=== PATIENT | male | born 1965 | race African-American/Black ===

== ENCOUNTER 2018-11-28 10:52 | Emergency (ER) | payer BC, OTHER ==
[2018-11-28 11:25] VITALS: TEMP 98.3
[2018-11-28] MEDS ORDERED: IPRATROPIUM-ALBUTEROL 3 ML NEB INHALATION STA (12:25)
[2018-11-28] MEDS ORDERED: SODIUM CHLORIDE 0.9% 500 ML 500 ML IV STA (12:25)
[2018-11-28] MEDS ORDERED: methylPREDNISolone SOD SUCCI 125 MG/2 ML VIAL IV STA (12:25)
[2018-11-28] MEDS ORDERED: hydrALAZINE HCL 20 MG/ML 1 ML VIAL IVP STA (12:26)
--- NOTE | 2018-11-28 13:16 | XR ---
EXAMINATION TYPE: XR chest 2V DATE OF EXAM: 11/28/2018 COMPARISON: NONE HISTORY: Shortness of breath TECHNIQUE: Frontal and lateral views of the chest are obtained. FINDINGS: Scattered senescent parenchymal changes noted. Hyperinflation compatible with COPD. No evidence for infiltrate. No evidence for atelectasis. Heart size is stable. Mediastinal structures are stable and grossly unremarkable. No evidence for hilar prominence. Degenerative changes dorsal spine. IMPRESSION: 1. No evidence for acute pulmonary disease.
[2018-11-28 13:20] LABS: Basophils # (A) 0.1 k/uL (0-0.2); Basophils % (A) 1 %; Eosinophils # (A) 0.2 k/uL (0-0.7); Eosinophils % (A) 2 %; HCT 44.4 % (39.0-53.0); HGB 14.1 gm/dL (13.0-17.5); Lymphocytes # (A) 3.2 k/uL (1.0-4.8); Lymphocytes % (A) 35 %; MCH 28.2 pg (25.0-35.0); MCHC 31.6 g/dL (31.0-37.0); MCV 89.3 fL (80.0-100.0); Mean Platelet Volume 9.7; Monocytes # (A) 0.4 k/uL (0-1.0); Monocytes % (A) 4 %; Neutrophils % (A) 54 %; Platelet Count 136 k/uL (150-450); RBC 4.97 m/uL (4.30-5.90); RDW 13.8 % (11.5-15.5); WBC 9.2 k/uL (3.8-10.6)
--- NOTE | 2018-11-28 13:31 | ED ---
URI HPI - General Chief Complaint: Upper Respiratory Infection Stated Complaint: cough, SOB Time Seen by Provider: 11/28/18 12:05 Source: patient, RN notes reviewed, old records reviewed Mode of arrival: ambulatory Limitations: no limitations - History of Present Illness Initial Comments: This Patient is a 53-year-old male presents emergency department today for evaluation and treatment cough for the past 2 days. Patient ports physical states she is wheezing. He denies any fever. He reports he's had a pretty productive cough. He denies any associated chest pain at this time. - Related Data Home Medications Medication Instructions Recorded Confirmed Ibuprofen [Motrin] 800 mg PO TID PRN 11/28/18 11/28/18 guaiFENesin SYRUP 100MG/5ML 200 mg PO Q6H PRN 11/28/18 11/28/18 [Robitussin] Previous Rx's Medication Instructions Recorded Albuterol Inhaler [Ventolin Hfa 1 - 2 puff INHALATION RT-Q6H PRN 11/28/18 Inhaler] #1 inhaler Azithromycin 250 mg PO DAILY #6 tablet 11/28/18 amLODIPine [Norvasc] 5 mg PO DAILY #7 tab 11/28/18 predniSONE 50 mg PO DAILY #5 tablet 11/28/18 Allergies Allergy/AdvReac Type Severity Reaction Status Date / Time No Known Allergies Allergy Verified 11/28/18 12:31 Review of Systems ROS Statement: Those systems with pertinent positive or pertinent negative responses have been documented in the HPI. ROS Other: All systems not noted in ROS Statement are negative. Past Medical History Past Medical History: No Reported History History of Any Multi-Drug Resistant Organisms: None Reported Past Surgical History: No Surgical Hx Reported Past Psychological History: No Psychological Hx Reported Smoking Status: Current every day smoker Past Alcohol Use History: None Reported Past Drug Use History: None Reported General Exam - General Exam Comments Initial Comments: 53-year-old male. No distress. Limitations: no limitations General appearance: alert, in no apparent distress Head exam: Present: atraumatic, normocephalic, normal inspection Eye exam: Present: normal appearance, PERRL, EOMI. Absent: scleral icterus, conjunctival injection, periorbital swelling ENT exam: Present: normal exam, mucous membranes moist Neck exam: Present: normal inspection. Absent: tenderness, meningismus, lymphadenopathy Respiratory exam: Present: wheezes. Absent: normal lung sounds bilaterally, respiratory distress, rales, rhonchi, stridor Cardiovascular Exam: Present: regular rate, normal rhythm, normal heart sounds. Absent: systolic murmur, diastolic murmur, rubs, gallop, clicks GI/Abdominal exam: Present: soft, normal bowel sounds. Absent: distended, tenderness, guarding, rebound, rigid Extremities exam: Present: normal inspection, full ROM, normal capillary refill. Absent: tenderness, pedal edema, joint swelling, calf tenderness Back exam: Present: normal inspection Neurological exam: Present: alert, oriented X3, CN II-XII intact Psychiatric exam: Present: normal affect, normal mood Skin exam: Present: warm, dry, intact, normal color. Absent: rash Course Vital Signs 11/28/18 11/28/18 11/28/18 11:22 12:34 12:40 Temperature 98.3 F Pulse Rate 82 112 H 120 H Respiratory 18 Rate Blood Pressure 172/130 O2 Sat by Pulse 99 Oximetry 11/28/18 14:30 Temperature Pulse Rate 72 Respiratory 16 Rate Blood Pressure 161/110 O2 Sat by Pulse 98 Oximetry Medical Decision Making - Medical Decision Making 53-year-old male presents emergency department today for evaluation with chief complaint of cough congestion and wheezing. He did have significant wheezing and rebound and reevaluation. Is given 2 breathing treatments. After this he has significant improvement of his lung sounds. I discussed the Patient in the put on steroids. Chest x-rays reviewed negative for any acute distress. Blood work was otherwise unremarkable. He also is quite hypertensive on arrival was given a dose of antihypertensive. Patient ports he does not have a primary care doctor. Discussed the importance of him his blood pressure checked and having labs checked as well. Discusses glucose was mildly elevated to be did eat before coming here. I discussed that we'll discharge the Patient with a course of steroids as well as antibiotics for acute bronchitis. Patient is agreeable to treatment plan will comply. Return parameters were discussed. - Lab Data Result diagrams: 11/28/18 12:50 11/28/18 12:50 Lab Results 11/28/18 11/28/18 Range/Units 12:50 12:50 WBC 9.2 (3.8-10.6) k/uL RBC 4.97 (4.30-5.90) m/uL Hgb 14.1 (13.0-17.5) gm/dL Hct 44.4 (39.0-53.0) % MCV 89.3 (80.0-100.0) fL MCH 28.2 (25.0-35.0) pg MCHC 31.6 (31.0-37.0) g/dL RDW 13.8 (11.5-15.5) % Plt Count 136 L (150-450) k/uL Neutrophils % 54 % Lymphocytes % 35 % Monocytes % 4 % Eosinophils % 2 % Basophils % 1 % Neutrophils # 5.0 (1.3-7.7) k/uL Lymphocytes # 3.2 (1.0-4.8) k/uL Monocytes # 0.4 (0-1.0) k/uL Eosinophils # 0.2 (0-0.7) k/uL Basophils # 0.1 (0-0.2) k/uL Sodium 139 (137-145) mmol/L Potassium 3.6 (3.5-5.1) mmol/L Chloride 105 (98-107) mmol/L Carbon Dioxide 23 (22-30) mmol/L Anion Gap 11 mmol/L BUN 15 (9-20) mg/dL Creatinine 1.06 (0.66-1.25) mg/dL Est GFR (CKD-EPI)AfAm >90 (>60 ml/min/1.73 sqM) Est GFR (CKD-EPI)NonAf 80 (>60 ml/min/1.73 sqM) Glucose 189 H (74-99) mg/dL Calcium 9.3 (8.4-10.2) mg/dL 11/28/18 14:05 EKG shows normal sinus rhythm with sinus arrhythmia otherwise normal EKG. - Radiology Data Radiology results: report reviewed Chest x-rays negative for acute disease. Disposition Clinical Impression: Bronchitis, Episode of hypertension Disposition: HOME SELF-CARE Condition: Good Instructions (If sedation given, give patient instructions): Upper Respiratory Infection (ED) Additional Instructions: Please use medication as discussed. Patient needs a follow-up with primary care doctor for concerns for early diabetes and elevated blood pressure. Please follow up with family doctor if symptoms have not improved over the next two days. Please return to the emergency room if your symptoms increase or worsen or for any other concerns. Prescriptions: Azithromycin 250 mg PO DAILY #6 tablet amLODIPine [Norvasc] 5 mg PO DAILY #7 tab predniSONE 50 mg PO DAILY #5 tablet Albuterol Inhaler [Ventolin Hfa Inhaler] 1 - 2 puff INHALATION RT-Q6H PRN #1 inhaler PRN Reason: Shortness Of Breath Is patient prescribed a controlled substance at d/c from ED?: No Referrals: None,Stated [Primary Care Provider] - 1-2 days Briseyda Bojorquez MD [STAFF PHYSICIAN] - 1-2 days Sita May MD [REFERRING] - 1-2 days Shabbir Hansen MD [STAFF PHYSICIAN] - 1-2 days Time of Disposition: 14:08
[2018-11-28 13:35] LABS: African American GFR (CKD) >90 (>60 ml/min/1.73 sqM); Anion Gap 11 mmol/L; Blood Urea Nitrogen 15 mg/dL (9-20); Calcium 9.3 mg/dL (8.4-10.2); Carbon Dioxide 23 mmol/L (22-30); Chloride 105 mmol/L (98-107); Glucose 189 mg/dL (74-99); Potassium 3.6 mmol/L (3.5-5.1); Sodium 139 mmol/L (137-145)
[2018-11-28 15:22] VITALS: BP 161/110; PULSE 72; RESP 16
== END 2018-11-28 15:13 | disposition home or self-care (01) ==
LOC: EC 10:52
DX: J20.9 Acute bronchitis, unspecified (principal); I10 Essential (primary) hypertension; R73.9 Hyperglycemia, unspecified; F17.200 Nicotine dependence, unspecified, uncomplicated
CPT/HCPCS: 36415; 94640; 93005; 80048; 85025; 71046; 99285; 96374; 96375; 96361; J0360; J2930

== ENCOUNTER 2022-06-15 15:02 | Emergency (ER) | payer OTHER ==
[2022-06-15 15:21] VITALS: TEMP 98.1
[2022-06-15 15:29] LABS: Glucose,Whole Blood 421 mg/dL (70-110)
[2022-06-15] MEDS ORDERED: SODIUM CHLORIDE 0.9% 2,000 ML IV ONE (15:41)
--- NOTE | 2022-06-15 15:50 | ED ---
General Adult HPI - General Chief complaint: Recheck/Abnormal Lab/Rx Stated complaint: high blood sugar Time Seen by Provider: 06/15/22 15:26 Source: patient Mode of arrival: ambulatory Limitations: no limitations - History of Present Illness Initial comments: This patient is a 56-year-old man with history of "borderline diabetes", who presents with complaint that over the past 2 weeks he has had generalized fatigue, polyuria, polydipsia. He states that over the past couple of days things have worsened he feels weak all of the time. He feels very dry. Blood sugar at home has been over 300. He therefore presents for evaluation here. The patient denies any focal symptoms of infection or pain. No fever or chills. No congestion, cough, dyspnea. No vomiting or diarrhea. No chest pain. Onset/Timin -: week(s) Severity scale (1-10): 0 Improves with: none Worsens with: none Associated Symptoms: weakness Treatments Prior to Arrival: none - Related Data Home Medications Medication Instructions Recorded Confirmed amLODIPine [Norvasc] 10 mg PO DIRECTED 06/15/22 06/15/22 Allergies Allergy/AdvReac Type Severity Reaction Status Date / Time No Known Allergies Allergy Verified 06/15/22 16:19 Review of Systems ROS Statement: Those systems with pertinent positive or pertinent negative responses have been documented in the HPI. ROS Other: All systems not noted in ROS Statement are negative. Constitutional: Denies: fever, chills Respiratory: Denies: cough, dyspnea Cardiovascular: Denies: chest pain, palpitations, edema Endocrine: Reports: fatigue, polydipsia, polyuria Gastrointestinal: Denies: abdominal pain, vomiting, diarrhea Genitourinary: Denies: dysuria, frequency, hematuria Skin: Denies: rash Neurological: Denies: headache, weakness Past Medical History Past Medical History: Diabetes Mellitus, Hypertension Additional Past Medical History / Comment(s): hypercholestremia History of Any Multi-Drug Resistant Organisms: None Reported Past Surgical History: No Surgical Hx Reported Past Psychological History: No Psychological Hx Reported Smoking Status: Current some day smoker Past Alcohol Use History: None Reported Past Drug Use History: None Reported General Exam Limitations: no limitations General appearance: alert, in no apparent distress Head exam: Present: atraumatic, normocephalic Eye exam: Present: normal appearance ENT exam: Present: mucous membranes dry Neck exam: Present: normal inspection Respiratory exam: Present: normal lung sounds bilaterally. Absent: respiratory distress, wheezes, rales, rhonchi, stridor Cardiovascular Exam: Present: regular rate, normal rhythm, normal heart sounds. Absent: systolic murmur, diastolic murmur, rubs, gallop GI/Abdominal exam: Present: soft. Absent: distended, tenderness, guarding, rebound, rigid, mass Extremities exam: Present: normal inspection, normal capillary refill. Absent: pedal edema, calf tenderness Back exam: Present: normal inspection. Absent: CVA tenderness (R), CVA tenderness (L) Neurological exam: Present: alert Skin exam: Present: warm, dry, intact, normal color. Absent: rash Course Vital Signs 06/15/22 06/15/22 06/15/22 15:17 18:00 19:12 Temperature 98.1 F Pulse Rate 86 82 62 Respiratory 20 16 16 Rate Blood Pressure 123/77 129/87 122/84 O2 Sat by Pulse 98 99 99 Oximetry Medical Decision Making - Medical Decision Making This patient is a 56-year-old man with history of diabetes who has recently been noncompliant with medication as she had run out. The patient is found to have hyperglycemia. Patient has insulin and fluids and is feeling better and would like to go home. He'll follow with his physician and recommended keeping a di jocelynn of everything that he eats or drink to discuss better diet control with his physician. Discussed appropriate return parameters and follow-up. The patient did have chest x-ray which does not show acute infiltrate, cardiomegaly or congestive heart failure. Was pt. sent in by a medical professional or institution (, PA, PRODUCTION SUPPORT ENGINEER, urgent care, hospital, or [facility]...) When possible be specific @ -[No] Did you speak to anyone other than the patient for history (EMS, parent, family, police, friend...)? What history was obtained from this source @ -[No] Did you review nursing and triage notes (agree or disagree)? Why? @ -[I reviewed and agree with nursing and triage notes] Were old charts reviewed (outside hosp., previous admission, EMS record, old EKG, old radiological studies, urgent care reports/EKG's, [facility] records)? Report findings @ -[No old charts were reviewed] Differential Diagnosis (chest pain, altered mental status, abdominal pain women, abdominal pain men, vaginal bleeding, weakness, fever, dyspnea, syncope, headache, dizziness, GI bleed, back pain, seizure, CVA, palpatations, mental health, musculoskeletal)? @ -[The differential diagnosis includes medical noncompliance, acute infection, acute [place], amongst other conditions EKG interpreted by me (3pts min.). @ -[As above] X-rays interpreted by me (1pt min.). @ -[As above CT interpreted by me (1pt min.). @ -[None done] U/S interpreted by me (1pt. min.). @ -[None done] What testing was considered but not performed or refused? (CT, X-rays, U/S, labs)? Why? @ -[None] What meds were considered but not given or refused? Why? @ -[None] Did you discuss the management of the patient with other professionals (professionals i.e. , PA, PRODUCTION SUPPORT ENGINEER, lab, RT, psych nurse, social work case manager, field technical specialist, teacher, airport operations officer, correctional case manager)? Give summary @ -[No] Was smoking cessation discussed for >3mins.? @ -[No] Was critical care preformed (if so, how long)? @ -[No] Were there social determinants of health that impacted care today? How? (Homelessness, low income, unemployed, alcoholism, drug addiction, transportation, low edu. Level, literacy, decrease access to med. care, fdc, rehab)? @ -[No] Was there de-escalation of care discussed even if they declined (Discuss DNR or withdrawal of care, Hospice)? DNR status @ -[No] What co-morbidities impacted this encounter? (DM, HTN, Smoking, COPD, CAD, Cancer, CVA, ARF, Chemo, Hep., AIDS, mental health diagnosis, sleep apnea, morbid obesity)? @ -[None] Was patient admitted / discharged? Hospital course, mention meds given and route, prescriptions, significant lab abnormalities, going to OR and other pertinent info. @ -[We discussed admission, but this point the patient would like to continue as outpatient with close follow-up Undiagnosed new problem with uncertain prognosis? @ -[No] Drug Therapy requiring intensive monitoring for toxicity (Heparin, Nitro, Insulin, Cardizem)? @ -[No] Were any procedures done? @ -[No] Diagnosis/symptom? @ -[Acute hyperglycemia Acute, or Chronic, or Acute on Chronic? @ -[default] Uncomplicated (without systemic symptoms) or Complicated (systemic symptoms)? @ -Uncomplicated Side effects of treatment? @ -[No] Exacerbation, Progression, or Severe Exacerbation? @ -[No] Poses a threat to life or bodily function? How? (Chest pain, [place], [place], pneumonia, PE, COPD, DKA, ARF, appy, cholecystitis, CVA, Diverticulitis, Homicidal, Suicidal, threat to staff... and all critical care pts) @ -[No] - Lab Data Result diagrams: 06/15/22 15:51 06/15/22 15:51 Lab Results 06/15/22 06/15/22 06/15/22 Range/Units 15:28 15:51 15:51 WBC 9.3 (3.8-10.6) k/uL RBC 4.48 (4.30-5.90) m/uL Hgb 13.5 (13.0-17.5) gm/dL Hct 38.4 L (39.0-53.0) % MCV 85.7 (80.0-100.0) fL MCH 30.2 (25.0-35.0) pg MCHC 35.2 (31.0-37.0) g/dL RDW 13.2 (11.5-15.5) % Plt Count 168 (150-450) k/uL MPV 12.8 Neutrophils % (Manual) 56 % Lymphocytes % (Manual) 35 % Monocytes % (Manual) 7 % Eosinophils % (Manual) 2 % Neutrophils # (Manual) 5.21 (1.3-7.7) k/uL Lymphocytes # (Manual) 3.26 (1.0-4.8) k/uL Monocytes # (Manual) 0.65 (0-1.0) k/uL Eosinophils # (Manual) 0.19 (0-0.7) k/uL Nucleated RBCs 0 (0-0) /100 WBC Manual Slide Review Performed Large Platelets Present Sodium 131 L (137-145) mmol/L Potassium 4.6 (3.5-5.1) mmol/L Chloride 99 (98-107) mmol/L Carbon Dioxide 21 L (22-30) mmol/L Anion Gap 11 mmol/L BUN 13 (9-20) mg/dL Creatinine 0.73 (0.66-1.25) mg/dL Est GFR (CKD-EPI)AfAm >90 (>60 ml/min/1.73 sqM) Est GFR (CKD-EPI)NonAf >90 (>60 ml/min/1.73 sqM) Glucose 368 H (74-99) mg/dL POC Glucose (mg/dL) 421 H (70-110) mg/dL POC Glu Human Resource Officer ID Holly Brown Calcium 8.9 (8.4-10.2) mg/dL Total Bilirubin 1.0 (0.2-1.3) mg/dL AST 43 (17-59) U/L ALT 48 (4-49) U/L Alkaline Phosphatase 55 (38-126) U/L Troponin I (0.000-0.034) ng/mL Total Protein 6.8 (6.3-8.2) g/dL Albumin 4.1 (3.5-5.0) g/dL Urine Color Urine Appearance (Clear) Urine pH (5.0-8.0) Ur Specific Baker (1.001-1.035) Urine Protein (Negative) Urine Glucose (UA) (Negative) Urine Ketones (Negative) Urine Blood (Negative) Urine Nitrite (Negative) Urine Bilirubin (Negative) Urine Urobilinogen (<2.0) mg/dL Ur Leukocyte Esterase (Negative) Acetone, Qual Negative (Negative) 06/15/22 06/15/22 06/15/22 Range/Units 15:51 16:44 17:48 WBC (3.8-10.6) k/uL RBC (4.30-5.90) m/uL Hgb (13.0-17.5) gm/dL Hct (39.0-53.0) % MCV (80.0-100.0) fL MCH (25.0-35.0) pg MCHC (31.0-37.0) g/dL RDW (11.5-15.5) % Plt Count (150-450) k/uL MPV Neutrophils % (Manual) % Lymphocytes % (Manual) % Monocytes % (Manual) % Eosinophils % (Manual) % Neutrophils # (Manual) (1.3-7.7) k/uL Lymphocytes # (Manual) (1.0-4.8) k/uL Monocytes # (Manual) (0-1.0) k/uL Eosinophils # (Manual) (0-0.7) k/uL Nucleated RBCs (0-0) /100 WBC Manual Slide Review Large Platelets Sodium (137-145) mmol/L Potassium (3.5-5.1) mmol/L Chloride (98-107) mmol/L Carbon Dioxide (22-30) mmol/L Anion Gap mmol/L BUN (9-20) mg/dL Creatinine (0.66-1.25) mg/dL Est GFR (CKD-EPI)AfAm (>60 ml/min/1.73 sqM) Est GFR (CKD-EPI)NonAf (>60 ml/min/1.73 sqM) Glucose (74-99) mg/dL POC Glucose (mg/dL) 341 H (70-110) mg/dL POC Glu Human Resource Officer ID Janie Byers Calcium (8.4-10.2) mg/dL Total Bilirubin (0.2-1.3) mg/dL AST (17-59) U/L ALT (4-49) U/L Alkaline Phosphatase (38-126) U/L Troponin I <0.012 (0.000-0.034) ng/mL Total Protein (6.3-8.2) g/dL Albumin (3.5-5.0) g/dL Urine Color Light Yellow Urine Appearance Clear (Clear) Urine pH 5.5 (5.0-8.0) Ur Specific Baker 1.038 H (1.001-1.035) Urine Protein Negative (Negative) Urine Glucose (UA) 4+ H (Negative) Urine Ketones 1+ H (Negative) Urine Blood Negative (Negative) Urine Nitrite Negative (Negative) Urine Bilirubin Negative (Negative) Urine Urobilinogen <2.0 (<2.0) mg/dL Ur Leukocyte Esterase Negative (Negative) Acetone, Qual (Negative) Disposition Clinical Impression: Hyperglycemia due to type 2 diabetes mellitus Disposition: HOME SELF-CARE Condition: Good Instructions (If sedation given, give patient instructions): Diabetic Hyperglycemia (ED) Is patient prescribed a controlled substance at d/c from ED?: No Referrals: Gina Oneill MD [Primary Care Provider] - 1-2 days
[2022-06-15 16:14] LABS: HCT 38.4 % (39.0-53.0); HGB 13.5 gm/dL (13.0-17.5); MCH 30.2 pg (25.0-35.0); MCHC 35.2 g/dL (31.0-37.0); MCV 85.7 fL (80.0-100.0); Mean Platelet Volume 12.8; Platelet Count 168 k/uL (150-450); RBC 4.48 m/uL (4.30-5.90); RDW 13.2 % (11.5-15.5); WBC 9.3 k/uL (3.8-10.6)
[2022-06-15 16:15] LABS: ALT 48 U/L (4-49); African American GFR (CKD) >90 (>60 ml/min/1.73 sqM); Albumin 4.1 g/dL (3.5-5.0); Anion Gap 11 mmol/L; Blood Urea Nitrogen 13 mg/dL (9-20); Calcium 8.9 mg/dL (8.4-10.2); Carbon Dioxide 21 mmol/L (22-30); Chloride 99 mmol/L (98-107); Glucose 368 mg/dL (74-99); Non-African American GFR(CKD) >90 (>60 ml/min/1.73 sqM); Sodium 131 mmol/L (137-145); Total Protein 6.8 g/dL (6.3-8.2)
[2022-06-15 16:25] LABS: AST 43 U/L (17-59); Alkaline Phosphatase 55 U/L (38-126); Potassium 4.6 mmol/L (3.5-5.1)
[2022-06-15 16:35] LABS: Eosinophils # (M) 0.19 k/uL (0-0.7); Large Platelets Present; Lymphocytes # (M) 3.26 k/uL (1.0-4.8); Monocytes # (M) 0.65 k/uL (0-1.0); Neutrophils # (M) 5.21 k/uL (1.3-7.7); Neutrophils % (M) 56 %; Nucleated Red Blood Cells 0 /100 WBC (0-0); Total Cells Counted 100
[2022-06-15 16:53] LABS: Appearance,Urine Clear (Clear); Bilirubin,Urine Negative (Negative); Blood,Urine Negative (Negative); Color,Urine Light Yellow; Glucose,Urine (UA) 4+ (Negative); Ketones,Urine 1+ (Negative); Leukocyte Esterase,Urine Negative (Negative); Nitrite,Urine Negative (Negative); PH, Urine 5.5 (5.0-8.0); Protein,Urine Negative (Negative); Specific Gravity,Urine 1.038 (1.001-1.035); Urobilinogen,Urine <2.0 mg/dL (<2.0)
[2022-06-15] MEDS ORDERED: INSULIN REGULAR 100 UNIT/ML VIAL (IV) SQ STA (17:00)
[2022-06-15 17:50] LABS: Glucose,Whole Blood 341 mg/dL (70-110)
[2022-06-15 18:40] VITALS: RESP 16
[2022-06-15 19:13] VITALS: BP 122/84; PULSE 62
== END 2022-06-15 19:13 | disposition home or self-care (01) ==
LOC: EC 15:02
DX: E11.65 Type 2 diabetes mellitus with hyperglycemia (principal); I10 Essential (primary) hypertension; F17.200 Nicotine dependence, unspecified, uncomplicated; Z79.899 Other long term (current) drug therapy
CPT/HCPCS: 36415; 80053; 81003; 82009; 84484; 85025; 99284

== ENCOUNTER 2022-06-20 16:26 | Observation (INO) | payer OTHER ==
[2022-06-20 17:47] LABS: Appearance,Urine Clear (Clear); Basophils # (A) 0.1 k/uL (0-0.2); Basophils % (A) 1 %; Bilirubin,Urine Negative (Negative); Blood,Urine Negative (Negative); Color,Urine Light Yellow; Eosinophils # (A) 0.2 k/uL (0-0.7); Eosinophils % (A) 2 %; Glucose,Urine (UA) 4+ (Negative); HCT 35.9 % (39.0-53.0); HGB 12.3 gm/dL (13.0-17.5); Ketones,Urine Negative (Negative); Leukocyte Esterase,Urine Negative (Negative); Lymphocytes # (A) 3.4 k/uL (1.0-4.8); Lymphocytes % (A) 41 %; MCH 30.1 pg (25.0-35.0); MCHC 34.4 g/dL (31.0-37.0); MCV 87.4 fL (80.0-100.0); Mean Platelet Volume 10.9; Monocytes # (A) 0.4 k/uL (0-1.0); Monocytes % (A) 4 %; Neutrophils # (A) 4.1 k/uL (1.3-7.7); Neutrophils % (A) 50 %; Nitrite,Urine Negative (Negative); PH, Urine 5.5 (5.0-8.0); Platelet Count 188 k/uL (150-450); Protein,Urine Negative (Negative); RDW 13.5 % (11.5-15.5); Specific Gravity,Urine 1.026 (1.001-1.035); Urobilinogen,Urine <2.0 mg/dL (<2.0); WBC 8.3 k/uL (3.8-10.6)
[2022-06-20 17:59] LABS: ALT 45 U/L (4-49); AST 38 U/L (17-59); African American GFR (CKD) >90 (>60 ml/min/1.73 sqM); Albumin 3.8 g/dL (3.5-5.0); Alkaline Phosphatase 50 U/L (38-126); Anion Gap 7 mmol/L; Blood Urea Nitrogen 11 mg/dL (9-20); Calcium 9.1 mg/dL (8.4-10.2); Carbon Dioxide 24 mmol/L (22-30); Chloride 101 mmol/L (98-107); Glucose 361 mg/dL (74-99); Non-African American GFR(CKD) >90 (>60 ml/min/1.73 sqM); Sodium 132 mmol/L (137-145); Total Bilirubin 0.5 mg/dL (0.2-1.3); Total Protein 6.3 g/dL (6.3-8.2)
[2022-06-20] MEDS ORDERED: SODIUM CHLORIDE 0.9% 2,000 ML IV ONE (18:22)
[2022-06-20] MEDS ORDERED: DEXTROSE 50% SYRINGE 50 ML IVP PRN ×2 (18:25)
[2022-06-20] MEDS ORDERED: NALOXONE 0.4 MG/ML 1 ML VIAL IV PRN (18:33)
[2022-06-20] MEDS ORDERED: ACETAMINOPHEN TAB 325 MG TAB PO PRN (18:33)
[2022-06-20] MEDS ORDERED: IBUPROFEN 400 MG TAB PO PRN (18:33)
--- NOTE | 2022-06-20 18:33 | ED ---
General Adult HPI - General Chief complaint: Recheck/Abnormal Lab/Rx Stated complaint: high blood sugar 385 Time Seen by Provider: 06/20/22 17:19 Source: patient, RN notes reviewed Mode of arrival: ambulatory Limitations: no limitations - History of Present Illness Initial comments: 56-year-old -[place] male who presents to the emergency department with a chief complaint of high blood sugar. Patient reports that his heart if blood sugar has been around 382 400 the last 3 days. He is also complaining of accompanying symptoms of polydipsia polyuria income. He was started on metformin 800 mg on 06/15/2022 however he has not had a resolution of symptoms. He denies any headache, vision changes, vision loss, chest pain, palpitations, shortness of breath, abdominal pain, nausea, vomiting, diarrhea. - Related Data Home Medications Medication Instructions Recorded Confirmed amLODIPine [Norvasc] 10 mg PO DIRECTED 06/15/22 06/20/22 Allergies Allergy/AdvReac Type Severity Reaction Status Date / Time erythromycin base Allergy throat Verified 06/20/22 17:12 tightness Review of Systems ROS Statement: Those systems with pertinent positive or pertinent negative responses have been documented in the HPI. ROS Other: All systems not noted in ROS Statement are negative. Past Medical History Past Medical History: Diabetes Mellitus, Hypertension Additional Past Medical History / Comment(s): hypercholestremia History of Any Multi-Drug Resistant Organisms: None Reported Past Surgical History: No Surgical Hx Reported Past Psychological History: No Psychological Hx Reported Smoking Status: Current some day smoker Past Alcohol Use History: None Reported Past Drug Use History: None Reported General Exam Limitations: no limitations General appearance: alert, in no apparent distress Head exam: Present: atraumatic, normocephalic, normal inspection Eye exam: Present: normal appearance, PERRL, EOMI. Absent: scleral icterus, conjunctival injection, periorbital swelling ENT exam: Present: normal exam, mucous membranes moist Neck exam: Present: normal inspection. Absent: tenderness, meningismus, lymphadenopathy Respiratory exam: Present: normal lung sounds bilaterally. Absent: respiratory distress, wheezes, rales, rhonchi, stridor Cardiovascular Exam: Present: regular rate, normal rhythm, normal heart sounds. Absent: systolic murmur, diastolic murmur, rubs, gallop, clicks GI/Abdominal exam: Present: soft, normal bowel sounds. Absent: distended, tenderness, guarding, rebound, rigid Extremities exam: Present: normal inspection, full ROM, normal capillary refill. Absent: tenderness, pedal edema, joint swelling, calf tenderness Back exam: Present: normal inspection Neurological exam: Present: alert, oriented X3, CN II-XII intact Psychiatric exam: Present: normal affect, normal mood Skin exam: Present: warm, dry, intact, normal color. Absent: rash Course Vital Signs 06/20/22 06/20/22 17:07 19:44 Temperature 98.4 F 98.6 F Pulse Rate 66 Pulse Rate [ 62 Supine Pulse Oximetery] Respiratory 20 18 Rate Blood Pressure 121/78 Blood Pressure 148/89 [Right Arm Supine] O2 Sat by Pulse 99 96 Oximetry - Reevaluation(s) Reevaluation #1: 06/20/22 18:31 Case discussed with [facility] who agrees and accepts the patient for admission Medical Decision Making - Medical Decision Making Was pt. sent in by a medical professional or institution (, PA, ASSOCIATE AUTOMATION ENGINEER, urgent care, hospital, or group home...) When possible be specific @ -[No] Did you speak to anyone other than the patient for history (EMS, parent, family, police, friend...)? What history was obtained from this source @ -[No] Did you review nursing and triage notes (agree or disagree)? Why? @ -[I reviewed and agree with nursing and triage notes] Were old charts reviewed (outside hosp., previous admission, EMS record, old EKG, old radiological studies, urgent care reports/EKG's, group home records)? Report findings @ -[No old charts were reviewed] Differential Diagnosis (chest pain, altered mental status, abdominal pain women, abdominal pain men, vaginal bleeding, weakness, fever, dyspnea, syncope, headache, dizziness, GI bleed, back pain, seizure, CVA, palpatations, mental health, musculoskeletal)? @ -[not applicable] EKG interpreted by me (3pts min.). @ -[As above] X-rays interpreted by me (1pt min.). @ -[None done] CT interpreted by me (1pt min.). @ -[None done] U/S interpreted by me (1pt. min.). @ -[None done] What testing was considered but not performed or refused? (CT, X-rays, U/S, michelle jain)? Why? @ -[None] What meds were considered but not given or refused? Why? @ -[None] Did you discuss the management of the patient with other professionals (professionals i.e. , PA, ASSOCIATE AUTOMATION ENGINEER, lab, RT, psych nurse, licensed clinical social worker, wet end tester, teacher, donor relations officer, counter caser)? Give summary @ -[No] Was smoking cessation discussed for >3mins.? @ -[No] Was critical care preformed (if so, how long)? @ -[No] Were there social determinants of health that impacted care today? How? (Homelessness, low income, unemployed, alcoholism, drug addiction, transportation, low edu. Level, literacy, decrease access to med. care, nursing home, rehab)? @ -[No] Was there de-escalation of care discussed even if they declined (Discuss DNR or withdrawal of care, Hospice)? DNR status @ -[No] What co-morbidities impacted this encounter? (DM, HTN, Smoking, COPD, CAD, Cancer, CVA, ARF, Chemo, Hep., AIDS, mental health diagnosis, sleep apnea, morbid obesity)? @ -[None] Was patient admitted / discharged? Hospital course, mention meds given and route, prescriptions, significant lab abnormalities, going to OR and other pe rtinent info. @ -Admission: 56 year old male presents to the emergency department with high blood sugar. patient had a thorough history and physical exam performed while in the ED. Physical exam is essentially unremarkable heart rate regular rate and rhythm, lungs clear to auscultation bilaterally abdomen is soft and nontender. Blood sugar. 361 while in the ED. He was given 2 L IV fluids and placed on an insulin sliding scale. Case discussed with [facility] who agrees and accepts the patient for admission for new onset diabetes mellitis managment. Case discussed with Dr. Macias who agrees with plan of care Undiagnosed new problem with uncertain prognosis? @ -[No] Drug Therapy requiring intensive monitoring for toxicity (Heparin, Nitro, Insulin, Cardizem)? @ -[No] Were any procedures done? @ -[No] Diagnosis/symptom? @ -high blood sugar Acute, or Chronic, or Acute on Chronic? @ -acute Uncomplicated (without systemic symptoms) or Complicated (systemic symptoms)? @ -uncomplicated Side effects of treatment? @ -[No] Exacerbation, Progression, or Severe Exacerbation? @ -[No] Poses a threat to life or bodily function? How? (Chest pain, USA, NH, pneumonia, PE, COPD, DKA, ARF, appy, cholecystitis, CVA, Diverticulitis, Homicidal, Miladis cidal, threat to staff... and all critical care pts) @ -low likelihood - Lab Data Result diagrams: 06/20/22 17:37 06/20/22 17:37 Lab Results 06/20/22 06/20/22 06/20/22 Range/Units 17:37 17:37 17:37 WBC 8.3 (3.8-10.6) k/uL RBC 4.10 L (4.30-5.90) m/uL Hgb 12.3 L (13.0-17.5) gm/dL Hct 35.9 L (39.0-53.0) % MCV 87.4 (80.0-100.0) fL MCH 30.1 (25.0-35.0) pg MCHC 34.4 (31.0-37.0) g/dL RDW 13.5 (11.5-15.5) % Plt Count 188 (150-450) k/uL MPV 10.9 Neutrophils % 50 % Lymphocytes % 41 % Monocytes % 4 % Eosinophils % 2 % Basophils % 1 % Neutrophils # 4.1 (1.3-7.7) k/uL Lymphocytes # 3.4 (1.0-4.8) k/uL Monocytes # 0.4 (0-1.0) k/uL Eosinophils # 0.2 (0-0.7) k/uL Basophils # 0.1 (0-0.2) k/uL Sodium 132 L (137-145) mmol/L Potassium 4.0 (3.5-5.1) mmol/L Chloride 101 (98-107) mmol/L Carbon Dioxide 24 (22-30) mmol/L Anion Gap 7 mmol/L BUN 11 (9-20) mg/dL Creatinine 0.92 (0.66-1.25) mg/dL Est GFR (CKD-EPI)AfAm >90 (>60 ml/min/1.73 sqM) Est GFR (CKD-EPI)NonAf >90 (>60 ml/min/1.73 sqM) Glucose 361 H (74-99) mg/dL Calcium 9.1 (8.4-10.2) mg/dL Total Bilirubin 0.5 (0.2-1.3) mg/dL AST 38 (17-59) U/L ALT 45 (4-49) U/L Alkaline Phosphatase 50 (38-126) U/L Total Protein 6.3 (6.3-8.2) g/dL Albumin 3.8 (3.5-5.0) g/dL Urine Color Light Yellow Urine Appearance Clear (Clear) Urine pH 5.5 (5.0-8.0) Ur Specific [place] 1.026 (1.001-1.035) Urine Protein Negative (Negative) Urine Glucose (UA) 4+ H (Negative) Urine Ketones Negative (Negative) Urine Blood Negative (Negative) Urine Nitrite Negative (Negative) Urine Bilirubin Negative (Negative) Urine Urobilinogen <2.0 (<2.0) mg/dL Ur Leukocyte Esterase Negative (Negative) Disposition Clinical Impression: Hyperglycemia due to type 2 diabetes mellitus Disposition: ADMITTED IP TO THIS HOSP Condition: Fair Time of Disposition: 18:35
[2022-06-20] MEDS: SODIUM CHLORIDE 0.9% 1,000 ML IV SCH (19:08)
[2022-06-20 20:56] LABS: Glucose,Whole Blood 272 mg/dL (70-110)
[2022-06-20] MEDS: INSULIN ASPART (NovoLOG) 100 UNIT/ML VIAL SQ SCH (22:33)
[2022-06-21 04:26] LABS: Glucose,Whole Blood 388 mg/dL (70-110)
[2022-06-21 07:12] LABS: Glucose,Whole Blood 324 mg/dL (70-110)
[2022-06-21] MEDS: INSULIN ASPART (NovoLOG) 100 UNIT/ML VIAL SQ SCH ×2 (07:59→13:30)
[2022-06-21 08:00] LABS: African American GFR (CKD) >90 (>60 ml/min/1.73 sqM); Anion Gap 7 mmol/L; Blood Urea Nitrogen 11 mg/dL (9-20); Calcium 8.4 mg/dL (8.4-10.2); Carbon Dioxide 23 mmol/L (22-30); Chloride 107 mmol/L (98-107); Glucose 300 mg/dL (74-99); Non-African American GFR(CKD) 88 (>60 ml/min/1.73 sqM); Potassium 4.2 mmol/L (3.5-5.1); Sodium 137 mmol/L (137-145)
[2022-06-21 08:04] LABS: Basophils % (A) 1 %; Eosinophils # (A) 0.2 k/uL (0-0.7); Eosinophils % (A) 2 %; HCT 35.7 % (39.0-53.0); HGB 11.9 gm/dL (13.0-17.5); Lymphocytes # (A) 3.3 k/uL (1.0-4.8); Lymphocytes % (A) 43 %; MCH 29.7 pg (25.0-35.0); MCHC 33.3 g/dL (31.0-37.0); MCV 89.3 fL (80.0-100.0); Mean Platelet Volume 12.6; Monocytes # (A) 0.3 k/uL (0-1.0); Monocytes % (A) 4 %; Neutrophils # (A) 3.6 k/uL (1.3-7.7); Neutrophils % (A) 48 %; RDW 13.5 % (11.5-15.5); WBC 7.5 k/uL (3.8-10.6)
[2022-06-21] MEDS ORDERED: metFORMIN 500 MG TAB PO SCH (09:30)
[2022-06-21] MEDS ORDERED: amLODIPine 10 MG TAB PO SCH (09:30)
[2022-06-21] MEDS: SODIUM CHLORIDE 0.9% 1,000 ML IV SCH (09:45)
[2022-06-21] MEDS ORDERED: glipiZIDE 5 MG TAB PO SCH ×2 (11:00→15:00)
[2022-06-21 11:10] VITALS: BMI 31.8
[2022-06-21 11:15] LABS: Glucose,Whole Blood 375 mg/dL (70-110)
[2022-06-21 12:06] LABS: Platelet Count 193 k/uL (150-450)
[2022-06-21 14:25] VITALS: BP 120/75; PULSE 60; RESP 18; TEMP 98.5
[2022-06-21 15:01] LABS: Glucose,Whole Blood 260 mg/dL (70-110)
--- NOTE | 2022-06-21 15:02 | P.HPIM ---
History of Present Illness H&P Date: 06/21/22 Chief Complaint: Hyperglycemia 56-year-old gentleman who had a recent outpatient diagnosis of diabetes mellitus and was prescribed metformin and glipizide at an urgent care presented to the emergency department with complains of hypoglycemia, polyuria polydipsia. Patient said he has started metformin 800 mg on 06/15 however his blood sugar continued to remain high. At the time of admission patient was hemodynamically stable blood work was obtained including basic metabolic panel which showed sodium of 132, normal renal function, CBC showed hemoglobin of 12.3 hematocrit of 35. Patient was counseled and was seen by disease management and education provided. Patient was given a glucometer upon discharge as well as an HbA1c is ordered which is pending at this time Review of Systems REVIEW OF SYSTEMS: Essentially negative except polyuria, polydipsia CONSTITUTIONAL: No fever, no malaise, no fatigue. HEENT: No recent visual problems or hearing problems. Denied any sore throat. CARDIOVASCULAR: No chest pain, orthopnea, PND, no palpitations, no syncope. PULMONARY: No shortness of breath, no cough, no hemoptysis. GASTROINTESTINAL: No diarrhea, no nausea, no vomiting, no abdominal pain. NEUROLOGICAL: No headaches, no weakness, no numbness. HEMATOLOGICAL: Denies any bleeding or petechiae. GENITOURINARY: Denies any burning micturition, frequency, or urgency. MUSCULOSKELETAL/RHEUMATOLOGICAL: Denies any joint pain, swelling, or any muscle pain. ENDOCRINE: polyuria or polydipsia. Past Medical History Past Medical History: Diabetes Mellitus, Hypertension Additional Past Medical History / Comment(s): hypercholestremia History of Any Multi-Drug Resistant Organisms: None Reported Past Surgical History: No Surgical Hx Reported Past Psychological History: No Psychological Hx Reported Smoking Status: Current some day smoker Past Alcohol Use History: None Reported Past Drug Use History: None Reported Medications and Allergies Home Medications Medication Instructions Recorded Confirmed Type amLODIPine [Norvasc] 10 mg PO DIRECTED 06/15/22 06/20/22 History Allergies Allergy/AdvReac Type Severity Reaction Status Date / Time erythromycin base Allergy throat Verified 06/20/22 17:12 tightness Physical Exam Vitals: Vital Signs Temp Pulse Pulse Pulse Resp BP BP 06/21/22 14:20 98.5 F 60 18 120/75 06/21/22 08:00 98.1 F 65 16 138/83 06/21/22 02:14 98.3 F 58 L 18 122/81 06/20/22 23:56 62 18 06/20/22 21:01 98.6 F 50 L 18 148/89 06/20/22 19:44 98.6 F 62 18 148/89 06/20/22 17:07 98.4 F 66 20 121/78 Pulse Ox 06/21/22 14:20 99 06/21/22 08:00 97 06/21/22 02:14 94 L 06/20/22 23:56 06/20/22 21:01 96 06/20/22 19:44 96 06/20/22 17:07 99 Intake and Output 06/20/22 06/21/22 06/21/22 22:59 06:59 14:59 Intake Total 500 Balance 500 Intake: Oral 500 Other: Voiding Method Toilet Toilet # Voids 2 3 # Bowel Movements 1 Weight 97.976 kg 97.976 kg PHYSICAL EXAMINATION: Vital reviewed GENERAL: The patient is alert and oriented x3, not in any acute distress. Well developed HEENT: Pupils are round and equally reacting to light. EOMI. No scleral icterus. No conjunctival pallor. Normocephalic, atraumatic. No pharyngeal erythema. CARDIOVASCULAR: S1 and S2 present. No murmurs, Edema not present PULMONARY: Chest is clear to auscultation, no wheezing or Ronchi ABDOMEN: Soft, nontender, nondistended, normoactive bowel sounds. No palpable organomegaly. MUSCULOSKELETAL: No joint swelling or deformity. EXTREMITIES: No cyanosis, clubbing, or pedal edema. NEUROLOGICAL: Gross neurological examination did not reveal any focal deficits. SKIN: No rashes. Results CBC & Chem 7: 06/21/22 06:15 06/21/22 06:15 Labs: Abnormal Lab Results - Last 24 Hours (Table) 06/20/22 06/20/22 06/20/22 Range/Units 17:16 17:37 17:37 RBC 4.10 L (4.30-5.90) m/uL Hgb 12.3 L (13.0-17.5) gm/dL Hct 35.9 L (39.0-53.0) % Sodium (137-145) mmol/L Glucose (74-99) mg/dL POC Glucose (mg/dL) 388 H (70-110) mg/dL Urine Glucose (UA) 4+ H (Negative) 06/20/22 06/20/22 06/21/22 Range/Units 17:37 20:54 06:15 RBC 4.00 L (4.30-5.90) m/uL Hgb 11.9 L (13.0-17.5) gm/dL Hct 35.7 L (39.0-53.0) % Sodium 132 L (137-145) mmol/L Glucose 361 H (74-99) mg/dL POC Glucose (mg/dL) 272 H (70-110) mg/dL Urine Glucose (UA) (Negative) 06/21/22 06/21/22 06/21/22 Range/Units 06:15 07:09 11:09 RBC (4.30-5.90) m/uL Hgb (13.0-17.5) gm/dL Hct (39.0-53.0) % Sodium (137-145) mmol/L Glucose 300 H (74-99) mg/dL POC Glucose (mg/dL) 324 H 375 H (70-110) mg/dL Urine Glucose (UA) (Negative) Thrombosis Risk Factor Assmnt - Choose All That Apply Any of the Below Risk Factors Present?: Yes Each Factor Represents 1 point: Age 41-60 years Other congenital or acquired thrombophilia - If yes, enter type in comment: No Thrombosis Risk Factor Assessment Total Risk Factor Score: 1 Thrombosis Risk Factor Assessment Level: Low Risk Assessment and Plan Assessment: Assessment and plan * Diabetes mellitus type 2 with poor control of blood glucose * Hypertension * For diabetes continue patient on metformin, patient seen by disease management education provided include dietary resection * By hypertension continue patient on amlodipine * HbA1c and lipid panel ordered * CODE STATUS is full code * Subcu heparin ordered for DVT prophylaxis Time with Patient: Greater than 30
--- NOTE | 2022-06-21 15:27 | P.DS ---
Providers Date of admission: 06/20/22 18:34 Expected date of discharge: 06/21/22 Attending physician: Bairon Mcmillan Primary care physician: Stated None Hospital Course: 56-year-old gentleman who had a recent outpatient diagnosis of diabetes mellitus and was prescribed metformin and glipizide at an urgent care presented to the emergency department with complains of hypoglycemia, polyuria polydipsia. Patient said he has started metformin 800 mg on 06/15 however his blood sugar continued to remain high. At the time of admission patient was hemodynamically stable blood work was obtained including basic metabolic panel which showed sodi um of 132, normal renal function, CBC showed hemoglobin of 12.3 hematocrit of 35. Patient was counseled and was seen by disease management and education provided. Patient was given a glucometer upon discharge as well as an HbA1c is ordered which is pending at this time Blood glucose range between 200-300 which was significantly improved after current medication regimen however patient will need outpatient follow-up with PCP PHYSICAL EXAMINATION: Vital reviewed GENERAL: The patient is alert and oriented x3, not in any acute distress. Well developed HEENT: Pupils are round and equally reacting to light. EOMI. No scleral icterus. No conjunctival pallor. Normocephalic, atraumatic. No pharyngeal erythema. CARDIOVASCULAR: S1 and S2 present. No murmurs, Edema not present PULMONARY: Chest is clear to auscultation, no wheezing or Ronchi ABDOMEN: Soft, nontender, nondistended, normoactive bowel sounds. No palpable organomegaly. MUSCULOSKELETAL: No joint swelling or deformity. EXTREMITIES: No cyanosis, clubbing, or pedal edema. NEUROLOGICAL: Gross neurological examination did not reveal any focal deficits. SKIN: No rashes. Assessment and plan Assessment and plan * Diabetes mellitus type 2 with poor control of blood glucose * Hypertension * For diabetes continue patient on metformin, patient seen by disease management education provided include dietary resection * For hypertension continue patient on amlodipine * HbA1c and lipid panel ordered pending at the time of discharge Plan - Discharge Summary Discharge Rx Participant: No New Discharge Prescriptions: New glipiZIDE [Glucotrol] 5 mg PO AC-BID 30 Days #60 tab metFORMIN HCL [Glucophage] 1,000 mg PO BID-W/MEALS 30 Days #60 tab Continue amLODIPine [Norvasc] 10 mg PO DIRECTED Discharge Medication List amLODIPine [Norvasc] 10 mg PO DIRECTED 06/15/22 [History] glipiZIDE [Glucotrol] 5 mg PO AC-BID 30 Days #60 tab 06/21/22 [Rx] metFORMIN HCL [Glucophage] 1,000 mg PO BID-W/MEALS 30 Days #60 tab 06/21/22 [Rx] Follow up Appointment(s)/Referral(s): None,Stated [Primary Care Provider] - 1-2 days Activity/Diet/Wound Care/Special Instructions: Healthy living ( diabetic supplies ) -[phone] Continue on diabetic diet [place] calories total 1800-calorie rescinded Monitor blood glucose and continue metformin and glipizide Discharge Disposition: HOME SELF-CARE
[2022-06-21] MEDS ORDERED: HEPARIN SODIUM,PORCINE/PF 5,000 UNIT/0.5 ML SYRINGE SQ SCH (21:00)
== END 2022-06-21 15:55 | disposition home or self-care (01) ==
LOC: EC 16:26 → 5NMEDONC 18:34
PROVIDERS: ADMIT Hospitalist; ATTEND Hospitalist
DX: E11.65 Type 2 diabetes mellitus with hyperglycemia (principal); I10 Essential (primary) hypertension; E78.00 Pure hypercholesterolemia, unspecified; F17.200 Nicotine dependence, unspecified, uncomplicated; Z79.899 Other long term (current) drug therapy; Z88.1 Allergy status to other antibiotic agents
CPT/HCPCS: 96360; 96361; 99285; 36415; 80053; 80048; 85025 ×2; 81003; 83036; G0378 ×2